=== PATIENT | male | born 1980 | race Two or more races ===

== ENCOUNTER 2020-12-23 06:01 | Inpatient (IN) | payer MEDICAID ==
[~2020-12-23] VITALS: Ht 165.1 cm; Wt 113.4 kg
[2020-12-23] VITALS (17 sets, daily range): BP systolic 122–170; BP diastolic 60–107
--- NOTE | 2020-12-23 06:25 | NUR ---
ED Nurse Note: Recieved pt walk in from home with c/o abdominal pain with nausea and constipation x 1 day, rates pain at 9/10 intermittently, denies chest pain, sob, fevers, or any other complaints, pt immediately gowned and placed on monitoring, will resume care as ordered including starting IV line and retrieving labs ordered.
--- NOTE | 2020-12-23 06:40 | Emergency Room Report ---
History of Present Illness General Chief Complaint: Abdominal Pain Source: Patient Present Illness HPI This patient states that yesterday evening about 3 to 4 hours after he had dinner, he developed nausea, vomiting and right lower quadrant abdominal pain. He states he had a couple episodes of vomiting later in the night and has had worsening of his abdominal pain. He states that the pain is now all over the right side of his abdomen, his epigastrium and mid abdomen. He states that he feels like he needs to have a bowel movement but when he tries to go he cannot. He denies fever or chills. He denies cough or congestion. He denies diarrhea. He states that he did eat the same soup as the rest of his family and none of his family have any symptoms. He denies chest pain. He denies headache or neck pain. He denies blurry vision. He has no other complaints. 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 Patient History Past Medical History: none Past Surgical History: none Social History: Reports: alcohol use - Occasional ETOH; Denies: smoking, drug use Reviewed Nursing Documentation: PMH: Agreed; PSxH: Agreed Nursing Documentation-PMH Past Medical History: No Stated History Review of Systems All Other Systems: negative except mentioned in HPI Physical Exam Vital Signs Date Time Temp Pulse Resp B/P (MAP) Pulse Ox O2 Delivery O2 Flow Rate FiO2 12/23/20 06:10 98.2 74 16 164/103 (123) 96 Room Air Sp02 EP Interpretation: reviewed, normal General Appearance: no apparent distress, alert, GCS 15, non-toxic Head: normocephalic, atraumatic Eyes: bilateral eye normal inspection, bilateral eye PERRL ENT: hearing grossly normal, normal pharynx, no angioedema, normal voice Neck: full range of motion, supple/symm/no masses Respiratory: chest non-tender, lungs clear, normal breath sounds, no respirat ory distress, no retraction, no accessory muscle use, speaking full sentences Cardiovascular #1: regular rate, rhythm, no edema Gastrointestinal: normal bowel sounds, soft, non-distended, no rebound, guarding - voluntary gaurding. +TTP RLQ, epigastrium, art-umbilical regions. Rectal: deferred Musculoskeletal: back normal, normal range of motion, gait/station normal, non- tender Neurologic: alert, motor strength/tone normal, oriented x3, sensory intact, responsive, speech normal Psychiatric: judgement/insight normal, memory normal, mood/affect normal, no suicidal/homicidal ideation Skin: no rash, normal color Medical Decision Making Diagnostic Impression: Primary Impression: Appendicitis ER Course This patient has abdominal pain that is worse in the right lower quadrant and is exquisitely tender on exam. After history and physical on initial evaluation, my differential diagnosis included: Appendicitis, small bowel obstruction, diverticulitis, colitis to name a few. I am mainly concerned about appendicitis and second possible bowel obstruction. Therefore, the patient underwent CT of abdomen and pelvis to assess for appendicitis, small bowel obstruction or other surgical intra-abdominal etiology which showed appendicitis. The patient declined pain medication and nausea medication initially when I had offered it to him, however, later he agreed. He is admitted to the medical surgical floor for surgical appendectomy. This patient was evaluated in the context of the global COVID-19 pandemic, which necessitated consideration that the patient might be at risk for infection with the [id number] virus that causes COVID-19. Institutional protocols and algo rithms that pertain to the evaluation of patients at risk for COVID-19 and the state of rapid change based on information released by multiple regulatory bodies including the CDC and federal and state organizations. These policies and algorithms were followed during the patient's care in the ED. Laboratory Tests Test 12/23/20 06:15 12/23/20 06:40 Urine Color Yellow Urine Appearance Clear Urine pH 8 (4.5-8.0) Urine Specific [place] 1.015 (1.005-1.035) Urine Protein 2+ (NEGATIVE) H Urine Glucose (UA) Negative (NEGATIVE) Urine Ketones Negative (NEGATIVE) Urine Blood Negative (NEGATIVE) Urine Nitrite Negative (NEGATIVE) Urine Bilirubin Negative (NEGATIVE) Urine Urobilinogen Normal MG/DL (0.0-1.0) Urine Leukocyte Esterase Negative (NEGATIVE) Urine RBC 0 /HPF (0 - 0) Urine WBC 0-2 /HPF (0 - 0) Urine Squamous Epithelial Cells Occasional /LPF Urine Bacteria Few /HPF (NONE) Urine Mucus Many /LPF (NONE/OCC) H White Blood Count 17.7 K/UL (4.8-10.8) H Red Blood Count 6.13 M/UL (4.70-6.10) H Hemoglobin 17.9 G/DL (14.2-18.0) Hematocrit 53.2 % (42.0-52.0) H Mean Corpuscular Volume 87 FL (80-99) Mean Corpuscular Hemoglobin 29.2 PG (27.0-31.0) Mean Corpuscular Hemoglobin Concent 33.6 G/DL (32.0-36.0) Red Cell Distribution Width 12.7 % (11.6-14.8) Platelet Count 242 K/UL (150-450) Mean Platelet Volume 9.2 FL (6.5-10.1) Neutrophils (%) (Auto) 85.8 % (45.0-75.0) H Lymphocytes (%) (Auto) 9.7 % (20.0-45.0) L Monocytes (%) (Auto) 3.7 % (1.0-10.0) Eosinophils (%) (Auto) 0.2 % (0.0-3.0) Basophils (%) (Auto) 0.4 % (0.0-2.0) Sodium Level 140 MMOL/L (136-145) Potassium Level 3.3 MMOL/L (3.5-5.1) L Chloride Level 102 MMOL/L (98-107) Carbon Dioxide Level 28 MMOL/L (21-32) Anion Gap 11 mmol/L (5-15) Blood Urea Nitrogen 12 mg/dL (7-18) Creatinine 1.0 MG/DL (0.55-1.30) Estimated Glomerular Filtration Rate > 60 mL/min (>60) Glucose Level 135 MG/DL (74-106) H Calcium Level 9.0 MG/DL (8.5-10.1) Total Bilirubin 0.3 MG/DL (0.2-1.0) Aspartate Amino Transferase (AST) 54 U/L (15-37) H Alanine Aminotransferase (ALT) 119 U/L (12-78) H Alkaline Phosphatase 120 U/L (46-116) H Total Protein 8.0 G/DL (6.4-8.2) Albumin 4.0 G/DL (3.4-5.0) Globulin 4.0 g/dL Albumin/Globulin Ratio 1.0 (1.0-2.7) Lipase 100 U/L (73-393) CT/MRI/US Diagnostic Results CT/MRI/US Diagnostic Results : Imaging Test Ordered: CT abd/pelvis: Impression IMPRESSION: Dilated, fluid-filled appendix with periappendiceal infiltrative changes. Findings are consistent with an acute appendicitis. No free air or abscess. Last Vital Signs Date Time Temp Pulse Resp B/P (MAP) Pulse Ox O2 Delivery O2 Flow Rate FiO2 12/23/20 06:10 98.2 74 16 164/103 (123) 96 Room Air Disposition: ADMITTED INPATIENT Condition: Serious Beth Dewitt DO Dec 23, 2020 06:40
[2020-12-23] MEDS ORDERED: Omnipaque-300 100ml vial INJ PRN (06:45)
[2020-12-23 06:49] LABS: APPEARANCE,URINE CLEAR; BILIRUBIN, URINE NEGATIVE (NEGATIVE); GLUCOSE, URINE (UA) NEGATIVE (NEGATIVE); KETONES,URINE NEGATIVE (NEGATIVE); LEUKOCYTE ESTERASE ,URINE NEGATIVE (NEGATIVE); NITRITE,URINE NEGATIVE (NEGATIVE); PH,URINE 8 (4.5-8.0); PROTEIN,URINE 2+ (NEGATIVE); UROBILINOGEN,URINE NORMAL MG/DL (0.0-1.0)
[2020-12-23 06:58] LABS: COLOR,URINE YELLOW
[2020-12-23 07:04] LABS: HEMATOCRIT 53.2 % (42.0-52.0); HEMOGLOBIN 17.9 G/DL (14.2-18.0); MEAN CORPUSCULAR VOLUME 87 FL (80-99); PLATELET COUNT 242 K/UL (150-450); RED BLOOD COUNT 6.13 M/UL (4.70-6.10); RED CELL DISTRIBUTION WIDTH 12.7 % (11.6-14.8); WHITE BLOOD COUNT 17.7 K/UL (4.8-10.8)
[2020-12-23 07:07] LABS: BASOPHILS % (AUTO) 0.4 % (0.0-2.0); EOSINOPHILS % (AUTO) 0.2 % (0.0-3.0); LYMPHOCYTES % (AUTO) 9.7 % (20.0-45.0); MONOCYTES % (AUTO) 3.7 % (1.0-10.0); NEUTROPHILS % (AUTO) 85.8 % (45.0-75.0)
[2020-12-23 07:13] LABS: ANION GAP 11 mmol/L (5-15); BLOOD UREA NITROGEN 12 mg/dL (7-18); CARBON DIOXIDE 28 MMOL/L (21-32); CHLORIDE 102 MMOL/L (98-107); POTASSIUM 3.3 MMOL/L (3.5-5.1); SODIUM 140 MMOL/L (136-145)
--- NOTE | 2020-12-23 07:23 | NUR ---
HAND-OFF: Report given to Trinh.
[2020-12-23 07:29] LABS: ALANINE AMINOTRANSFERASE 119 U/L (12-78); ALKALINE PHOSPHATASE 120 U/L (46-116); ASPARTATE AMINO TRANSFERASE 54 U/L (15-37); BILIRUBIN,TOTAL 0.3 MG/DL (0.2-1.0)
--- NOTE | 2020-12-23 07:35 | NUR ---
ED Nurse Note: Patient taken to CT in stable condition.
--- NOTE | 2020-12-23 07:49 | NUR ---
ED Nurse Note: Pt came back from CT and stable.
--- NOTE | 2020-12-23 08:03 | Diagnostic Imaging Report ---
EXAM: CT Abdomen and Pelvis With Intravenous Contrast CLINICAL HISTORY: PAIN TECHNIQUE: Axial computed tomography images of the abdomen and pelvis with intravenous contrast. CTDI is 9.5 mGy and DLP is 517.6 mGy-cm. One or more of the following dose reduction techniques were used: automated exposure control, adjustment of the mA and/or kV according to patient size, use of iterative reconstruction technique. COMPARISON: No relevant prior studies available. FINDINGS: Lung bases: Unremarkable. No mass. No consolidation. ABDOMEN: Liver: Hepatic steatosis. No focal hepatic lesion. Gallbladder and bile ducts: Unremarkable. No calcified stones. No ductal dilation. Pancreas: Unremarkable. No mass. No ductal dilation. Spleen: Unremarkable. No splenomegaly. Adrenals: Unremarkable. No mass. Kidneys and ureters: Unremarkable. No solid mass. No hydronephrosis. Stomach and bowel: No bowel obstruction. Mild reactive wall thickening of the cecum. Otherwise no evidence of bowel wall thickening. PELVIS: Appendix: Dilated, fluid-filled appendix measuring up to 17 mm in maximal diameter, with periappendiceal fat stranding and mild free fluid. Findings are consistent with acute appendicitis. No loculated periappendiceal fluid collection. Bladder: Unremarkable. No mass. Reproductive: Unremarkable as visualized. ABDOMEN and PELVIS: Intraperitoneal space: No free intra-abdominal air. Bones/joints: No acute fracture. No dislocation. Soft tissues: Unremarkable. Vasculature: Unremarkable. No abdominal aortic aneurysm. Lymph nodes: Unremarkable. No enlarged lymph nodes. IMPRESSION: Dilated, fluid-filled appendix with periappendiceal infiltrative changes. Findings are consistent with an acute appendicitis. No free air or abscess. <MYCVCSECTION> Communications: 12/23/20 08:22 Call Doctor Regarding Appendicitis, called Dr. Post on 12/23 08:23 (-08:00)
[2020-12-23] MEDS ORDERED: cefOXitin Sod 1 GM in D5W 55 ML IVPB ONE (08:30)
[2020-12-23] MEDS ORDERED: Morphine Sulfate 4mg/ml Inj (IV USE ONLY) IVP ONE (09:30)
--- NOTE | 2020-12-23 09:34 | NUR ---
REPORT GIVEN TO RN AT MED SURG ROOM [id number] AWAKE ALERT ORIENTED
[2020-12-23] MEDS ORDERED: EPINEPHrine 1mg/1ml Amp ONE (09:51)
[2020-12-23] MEDS ORDERED: Bupivacaine 0.25% Inj 30ml INJ ONE (09:58)
--- NOTE | 2020-12-23 10:33 | Consultation ---
History of Present Illness General Date patient seen: Dec 23, 2020 Reason for Hospitalization: Abdominal Pain Present Illness HPI 40-year-old otherwise healthy male presented to [facility] complaining of right lower quadrant abdominal pain for 1 day. States umbilical right lower quadrant pain began later in the evening followed by nausea and emesis nonbloody bilious emesis. Normal flatus normal bowel movement pain described as cramping 6 out of 10 pain came in for evaluation identified to have leukocytosis CT scan consistent with appendicitis surgery called to evaluate and assist with care patient seen in emergency department. Allergies: Coded Allergies: No Known Allergies (Unverified , 12/23/20) COVID-19 Screening Contact w/high risk pt: No Experienced COVID-19 symptoms?: No Patient History History Provided By: Patient, Medical Record, PMD Healthcare decision maker Resuscitation status Advanced Directive on File Past Medical/Surgical History Past Medical/Surgical History: (1) Appendicitis Review of Systems Review of Symptoms General ROS: no weight loss or fever Psychological ROS: no depression or mood changes, no memory loss Ophthalmic ROS: no visual changes or eye irritation ENT ROS: no nasal congestion, hearing loss, dizziness Allergy and Immunology ROS: no allergic symptoms or urticaria Hematological and Lymphatic ROS: no swollen glands, unusual bleeding or bruising Endocrine ROS: no polyuria, polydipsia, weight changes, temperature intolerance Respiratory ROS: no cough, shortness of breath, or wheezing Cardiovascular ROS: no chest pain or dyspnea on exertion Gastrointestinal ROS: + abdominal pain, bright red blood in stool. Musculoskeletal ROS: no myalgias or arthralgias Neurological ROS: no TIA or stroke symptoms Dermatological ROS: no new or changing skin lesions, rashes or pruritis Physical Exam Physical Exam General appearance: alert, cooperative, no distress, appears stated age Head: Normocephalic, without obvious abnormality, atraumatic Eyes: conjunctivae/corneas clear. PERRL, EOM's intact. Fundi benign Throat: Lips, mucosa, and tongue normal. Teeth and gums normal Neck: supple, symmetrical, trachea midline, no adenopathy, thyroid: not enlarged, symmetric, no tenderness/mass/nodules, no carotid bruit and no JVD Lungs: clear to auscultation bilaterally Heart: regular rate and rhythm, S1, S2 normal, no murmur, click, rub or gallop Abdomen: soft, RLQ-tender. Bowel sounds normal. No masses, no organomegaly Extremities: extremities normal, atraumatic, no cyanosis or edema Pulses: 2+ and symmetric Skin: Skin color, texture, turgor normal. No rashes or lesions Neurologic: Grossly normal Last 24 Hour Vital Signs Date Time Temp Pulse Resp B/P (MAP) Pulse Ox O2 Delivery O2 Flow Rate FiO2 12/23/20 09:31 98.0 82 16 130/80 98 Room Air 12/23/20 07:00 98.2 65 16 145/85 97 Room Air 12/23/20 06:20 74 16 Room Air 12/23/20 06:10 98.2 74 16 164/103 (123) 96 Room Air Intake and Output 12/22/20 12/23/20 19:00 07:00 # Voids 1 Laboratory Tests Test 12/23/20 06:15 12/23/20 06:40 Urine Color Yellow Urine Appearance Clear Urine pH 8 (4.5-8.0) Urine Specific [place] 1.015 (1.005-1.035) Urine Protein 2+ (NEGATIVE) H Urine Glucose (UA) Negative (NEGATIVE) Urine Ketones Negative (NEGATIVE) Urine Blood Negative (NEGATIVE) Urine Nitrite Negative (NEGATIVE) Urine Bilirubin Negative (NEGATIVE) Urine Urobilinogen Normal MG/DL (0.0-1.0) Urine Leukocyte Esterase Negative (NEGATIVE) Urine RBC 0 /HPF (0 - 0) Urine WBC 0-2 /HPF (0 - 0) Urine Squamous Epithelial Cells Occasional /LPF Urine Bacteria Few /HPF (NONE) Urine Mucus Many /LPF (NONE/OCC) H White Blood Count 17.7 K/UL (4.8-10.8) H Red Blood Count 6.13 M/UL (4.70-6.10) H Hemoglobin 17.9 G/DL (14.2-18.0) Hematocrit 53.2 % (42.0-52.0) H Mean Corpuscular Volume 87 FL (80-99) Mean Corpuscular Hemoglobin 29.2 PG (27.0-31.0) Mean Corpuscular Hemoglobin Concent 33.6 G/DL (32.0-36.0) Red Cell Distribution Width 12.7 % (11.6-14.8) Platelet Count 242 K/UL (150-450) Mean Platelet Volume 9.2 FL (6.5-10.1) Neutrophils (%) (Auto) 85.8 % (45.0-75.0) H Lymphocytes (%) (Auto) 9.7 % (20.0-45.0) L Monocytes (%) (Auto) 3.7 % (1.0-10.0) Eosinophils (%) (Auto) 0.2 % (0.0-3.0) Basophils (%) (Auto) 0.4 % (0.0-2.0) Sodium Level 140 MMOL/L (136-145) Potassium Level 3.3 MMOL/L (3.5-5.1) L Chloride Level 102 MMOL/L (98-107) Carbon Dioxide Level 28 MMOL/L (21-32) Anion Gap 11 mmol/L (5-15) Blood Urea Nitrogen 12 mg/dL (7-18) Creatinine 1.0 MG/DL (0.55-1.30) Estimat Glomerular Filtration Rate > 60 mL/min (>60) Glucose Level 135 MG/DL (74-106) H Calcium Level 9.0 MG/DL (8.5-10.1) Total Bilirubin 0.3 MG/DL (0.2-1.0) Aspartate Amino Transf (AST/SGOT) 54 U/L (15-37) H Alanine Aminotransferase (ALT/SGPT) 119 U/L (12-78) H Alkaline Phosphatase 120 U/L (46-116) H Total Protein 8.0 G/DL (6.4-8.2) Albumin 4.0 G/DL (3.4-5.0) Globulin 4.0 g/dL Albumin/Globulin Ratio 1.0 (1.0-2.7) Lipase 100 U/L (73-393) Height (Feet): 5 Height (Inches): 5.00 Weight (Pounds): 250 Medications Current Medications Medications (Trade) Dose Ordered Sig/Sully Route PRN Reason Start Time Stop Time Status Last Admin Dose Admin Iohexol (OMNIPAQUE-300 100ml) 100 ml NOW PRN INJ Radiology Procedure 12/23/20 06:45 12/25/20 06:44 Sodium Chloride 1,000 ml @ 999 mls/hr Q1H1M ONCE IV 12/23/20 09:30 12/23/20 10:30 1/25/21 10:09 Assessment/Plan Problem List: (1) Appendicitis Assessment & Plan: 40M acute appendicitis uncomplicated afebrile, HD stable no covid symptoms leukocytosis CT consistent with acute uncomplicated appendicitis. npo iv fluids iv abx to or for lap vs open appy consent thank you ABDOMEN: Liver: Hepatic steatosis. No focal hepatic lesion. Gallbladder and bile ducts: Unremarkable. No calcified stones. No ductal dilation. Pancreas: Unremarkable. No mass. No ductal dilation. Spleen: Unremarkable. No splenomegaly. Adrenals: Unremarkable. No mass. Kidneys and ureters: Unremarkable. No solid mass. No hydronephrosis. Stomach and bowel: No bowel obstruction. Mild reactive wall thickening of the cecum. Otherwise no evidence of bowel wall thickening. PELVIS: Appendix: Dilated, fluid-filled appendix measuring up to 17 mm in maximal diameter, with periappendiceal fat stranding and mild free fluid. Findings are consistent with acute appendicitis. No loculated periappendiceal fluid collection. Bladder: Unremarkable. No mass. Reproductive: Unremarkable as visualized. ABDOMEN and PELVIS: Intraperitoneal space: No free intra-abdominal air. Bones/joints: No acute fracture. No dislocation. Soft tissues: Unremarkable. Vasculature: Unremarkable. No abdominal aortic aneurysm. Lymph nodes: Unremarkable. No enlarged lymph nodes. IMPRESSION: Dilated, fluid-filled appendix with periappendiceal infiltrative changes. Findings are consistent with an acute appendicitis. No free air or abscess. ICD Codes: K37 - Unspecified appendicitis SNOMED: [id number] Dom Clark Dec 23, 2020 10:33
--- NOTE | 2020-12-23 10:34 | Pre-Procedure Note/Attestation ---
Pre-Procedure Note/Attestation Complete Prior to Procedure Procedure Narrative: laparoscopic appendectomy Indications for Procedure Pre-Operative Diagnosis: acute appendicitis Attestation I attest that I discussed the nature of the procedure; its benefits; risks and complications; and alternatives (and the risks and benefits of such alternatives), prior to the procedure, with the patient (or the patient's legal credit resolution representative). I attest that, if there was a reasonable possibility of needing a blood transfusion, the patient (or the patient's legal credit resolution representative) was given the [facility] standardized written summary, pursuant to the [place]idi Alligator Blood Safety Act ([place] Health and Safety Code # 1645, as amended). I attest that I re-evaluated the patient just prior to the surgery and that there has been no change in the patient's H&P, except as documented below: Dom Clark Dec 23, 2020 10:33
--- NOTE | 2020-12-23 10:45 | Cardiac Electrophysiology PN ---
Subjective Subjective Seen and examined. No CP or SOB. No prior MA or CAD or CHF. On no meds.No DM or HTN Will get stat ECG. Stable to proceed with appendectomy. DW Dr Clark and RN Objective Last 24 Hour Vital Signs Date Time Temp Pulse Resp B/P (MAP) Pulse Ox O2 Delivery O2 Flow Rate FiO2 12/23/20 09:31 98.0 82 16 130/80 98 Room Air 12/23/20 07:00 98.2 65 16 145/85 97 Room Air 12/23/20 06:20 74 16 Room Air 12/23/20 06:10 98.2 74 16 164/103 (123) 96 Room Air Intake and Output 12/22/20 12/23/20 19:00 07:00 # Voids 1 Laboratory Tests Test 12/23/20 06:15 12/23/20 06:40 Urine Color Yellow Urine Appearance Clear Urine pH 8 (4.5-8.0) Urine Specific [place] 1.015 (1.005-1.035) Urine Protein 2+ (NEGATIVE) H Urine Glucose (UA) Negative (NEGATIVE) Urine Ketones Negative (NEGATIVE) Urine Blood Negative (NEGATIVE) Urine Nitrite Negative (NEGATIVE) Urine Bilirubin Negative (NEGATIVE) Urine Urobilinogen Normal MG/DL (0.0-1.0) Urine Leukocyte Esterase Negative (NEGATIVE) Urine RBC 0 /HPF (0 - 0) Urine WBC 0-2 /HPF (0 - 0) Urine Squamous Epithelial Cells Occasional /LPF Urine Bacteria Few /HPF (NONE) Urine Mucus Many /LPF (NONE/OCC) H White Blood Count 17.7 K/UL (4.8-10.8) H Red Blood Count 6.13 M/UL (4.70-6.10) H Hemoglobin 17.9 G/DL (14.2-18.0) Hematocrit 53.2 % (42.0-52.0) H Mean Corpuscular Volume 87 FL (80-99) Mean Corpuscular Hemoglobin 29.2 PG (27.0-31.0) Mean Corpuscular Hemoglobin Concent 33.6 G/DL (32.0-36.0) Red Cell Distribution Width 12.7 % (11.6-14.8) Platelet Count 242 K/UL (150-450) Mean Platelet Volume 9.2 FL (6.5-10.1) Neutrophils (%) (Auto) 85.8 % (45.0-75.0) H Lymphocytes (%) (Auto) 9.7 % (20.0-45.0) L Monocytes (%) (Auto) 3.7 % (1.0-10.0) Eosinophils (%) (Auto) 0.2 % (0.0-3.0) Basophils (%) (Auto) 0.4 % (0.0-2.0) Sodium Level 140 MMOL/L (136-145) Potassium Level 3.3 MMOL/L (3.5-5.1) L Chloride Level 102 MMOL/L (98-107) Carbon Dioxide Level 28 MMOL/L (21-32) Anion Gap 11 mmol/L (5-15) Blood Urea Nitrogen 12 mg/dL (7-18) Creatinine 1.0 MG/DL (0.55-1.30) Estimat Glomerular Filtration Rate > 60 mL/min (>60) Glucose Level 135 MG/DL (74-106) H Calcium Level 9.0 MG/DL (8.5-10.1) Total Bilirubin 0.3 MG/DL (0.2-1.0) Aspartate Amino Transf (AST/SGOT) 54 U/L (15-37) H Alanine Aminotransferase (ALT/SGPT) 119 U/L (12-78) H Alkaline Phosphatase 120 U/L (46-116) H Total Protein 8.0 G/DL (6.4-8.2) Albumin 4.0 G/DL (3.4-5.0) Globulin 4.0 g/dL Albumin/Globulin Ratio 1.0 (1.0-2.7) Lipase 100 U/L (73-393) Guillermo Scott MD Dec 23, 2020 10:45
--- NOTE | 2020-12-23 10:48 | NUR ---
NURSE NOTES: Patient arrived on unit. Stable. Breathing is even and unlabored. Denies pain or SOB. Patient instructed to use call light for assistance, verbalized understanding. Patient is in bed in locked and lowest position with call light within reach. All safety measures provided. Will continue plan of care.
--- NOTE | 2020-12-23 11:27 | Anethesia Preoperative Eval ---
Anesthesia Pre-op PMH/ROS General Date of Evaluation: Dec 23, 2020 Time of Evaluation: 11:26 Anesthesiologist: Selene ASA Score: ASA 3 - Emergency Mallampati Score Class I : Soft palate, uvula, fauces, pillars visible Class II: Soft palate, uvula, fauces visible Class III: Soft palate, base of uvula visible Class IV: Only hard plate visible Mallampati Classification: Class III Surgeon: Eduardo Diagnosis: Appendicitis Surgical Procedure: Laparoscopic Appendectomy Anesthesia History: none Family History: no anesthesia problems Allergies: Coded Allergies: No Known Allergies (Unverified , 12/23/20) Medications: see eMAR Patient NPO?: Yes Past Medical History Cardiovascular: Reports: HTN Hematology/Immune: Reports: other - Covid + Other: obesity - BMI 43 Anesthesia Pre-op Phys. Exam Physician Exam Last Vital Signs Date Time Temp Pulse Resp B/P (MAP) Pulse Ox O2 Delivery O2 Flow Rate FiO2 12/23/20 10:59 98.3 82 18 170/107 (128) 99 12/23/20 09:31 Room Air Constitutional: NAD Neurologic: CN 2-12 intact Cardiovascular: RRR Respiratory: CTA Gastrointestinal: S/NT/ND Airway Exam Mallampati Score: Class III MO: limited ROM: limited Teeth: missing, intact Anesthesia Pre-op A/P Labs Hematology Test 12/23/20 06:40 White Blood Count 17.7 K/UL (4.8-10.8) H Red Blood Count 6.13 M/UL (4.70-6.10) H Hemoglobin 17.9 G/DL (14.2-18.0) Hematocrit 53.2 % (42.0-52.0) H Mean Corpuscular Volume 87 FL (80-99) Mean Corpuscular Hemoglobin 29.2 PG (27.0-31.0) Mean Corpuscular Hemoglobin Concent 33.6 G/DL (32.0-36.0) Red Cell Distribution Width 12.7 % (11.6-14.8) Platelet Count 242 K/UL (150-450) Mean Platelet Volume 9.2 FL (6.5-10.1) Neutrophils (%) (Auto) 85.8 % (45.0-75.0) H Lymphocytes (%) (Auto) 9.7 % (20.0-45.0) L Monocytes (%) (Auto) 3.7 % (1.0-10.0) Eosinophils (%) (Auto) 0.2 % (0.0-3.0) Basophils (%) (Auto) 0.4 % (0.0-2.0) Chemistry Test 12/23/20 06:40 Sodium Level 140 MMOL/L (136-145) Potassium Level 3.3 MMOL/L (3.5-5.1) L Chloride Level 102 MMOL/L (98-107) Carbon Dioxide Level 28 MMOL/L (21-32) Anion Gap 11 mmol/L (5-15) Blood Urea Nitrogen 12 mg/dL (7-18) Creatinine 1.0 MG/DL (0.55-1.30) Estimat Glomerular Filtration Rate > 60 mL/min (>60) Glucose Level 135 MG/DL (74-106) H Calcium Level 9.0 MG/DL (8.5-10.1) Total Bilirubin 0.3 MG/DL (0.2-1.0) Aspartate Amino Transf (AST/SGOT) 54 U/L (15-37) H Alanine Aminotransferase (ALT/SGPT) 119 U/L (12-78) H Alkaline Phosphatase 120 U/L (46-116) H Total Protein 8.0 G/DL (6.4-8.2) Albumin 4.0 G/DL (3.4-5.0) Globulin 4.0 g/dL Albumin/Globulin Ratio 1.0 (1.0-2.7) Lipase 100 U/L (73-393) Risk Assessment & Plan Assessment: ASA 3E Plan: GA, GlideScope Status Change Before Surgery: No Pre-Antibiotics Dru Grams Ancef IV Given Within 1 Hr of Incision: Yes Time Given: 13:01 William Morton MD Dec 23, 2020 11:27
[2020-12-23] MEDS ORDERED: Atropine Sulfate 0.4mg/ml inj IVP PRN (11:30)
[2020-12-23] MEDS ORDERED: LORazepam Inj 2mg/ml 1ml IV PRN (11:30)
[2020-12-23] MEDS ORDERED: Hydromorphone 0.5mg/0.5ml inj IVP PRN (11:30)
[2020-12-23] MEDS ORDERED: NS Irrig 1000ml ONE (11:30)
[2020-12-23] MEDS ORDERED: Metoclopramide 10mg/2ml Inj IVP PRN (11:30)
[2020-12-23] MEDS ORDERED: LR 1000ml ONE (11:30)
[2020-12-23] MEDS ORDERED: Midazolam 2mg/2ml Inj IVP PRN (11:30)
[2020-12-23] MEDS ORDERED: Meperidine 25mg/1ml Inj (FOR RIGORS ONLY) IV PRN (11:30)
[2020-12-23] MEDS ORDERED: oxyCODONE HCL/Acetaminophen 5/325mg ORAL PRN (11:30)
[2020-12-23] MEDS ORDERED: Acetaminophen (Non formulary) 100 ML IV ONE (11:30)
[2020-12-23] MEDS ORDERED: LR 1000ml 1,000 ML IVLG SCH (11:30)
[2020-12-23] MEDS ORDERED: Sterile Water Irrig 1000ml IRRIG ONE (11:30)
[2020-12-23] MEDS ORDERED: HYDROcodone/Acetamin 7.5/325 tab ORAL PRN (11:30)
[2020-12-23] MEDS ORDERED: DiphenhydrAMINE 50mg/ml Inj IVP PRN (11:30)
[2020-12-23] MEDS ORDERED: Ketorolac 30mg Inj IV PRN ×2 (11:30)
[2020-12-23] MEDS ORDERED: HYDROcodone/Acetamin 5/325 tab ORAL PRN ×2 (11:30→12:45)
[2020-12-23] MEDS ORDERED: fentaNYL 100 mcg/2 mL IV PRN (11:30)
--- NOTE | 2020-12-23 11:34 | Immediate Post-Op Evaluation ---
Immediate Post-Op Evalulation Immediate Post-Op Evalulation Procedure: Laparoscopic Appendectomy Date of Evaluation: Dec 23, 2020 Time of Evaluation: 13:20 IV Fluids: 1000 LR Blood Products: 0 Estimated Blood Loss: 50 Urinary Output: 0 Blood Pressure Systolic: 155 Blood Pressure Diastolic: 104 Pulse Rate: 116 Respiratory Rate: 20 O2 Sat by Pulse Oximetry: 90 Temperature (Fahrenheit): 98 Pain Score (1-10): 2 Nausea: No Vomiting: No Complications 0 Patient Status: awake, reacts, patent, extubated, none Hydration Status: adequate Dru Grams Ancef IV Given Within 1 Hr of Incision: Yes Time Given: 13:01 William Morton MD Dec 23, 2020 11:34
--- NOTE | 2020-12-23 11:34 | NUR ---
NURSE NOTES: Patient taken to surgery.
--- NOTE | 2020-12-23 11:34 | 48 Hour Post Anesthesia Eval ---
Post Anesthesia Evaluation Procedure: Laparoscopic Appendectomy Date of Evaluation: Dec 23, 2020 Time of Evaluation: 15:34 Blood Pressure Systolic: 156 0: 103 Pulse Rate: 114 Respiratory Rate: 20 Temperature (Fahrenheit): 98 O2 Sat by Pulse Oximetry: 94 Airway: patent Nausea: No Vomiting: No Pain Intensity: 2 Hydration Status: adequate Cardiopulmonary Status: Stable Mental Status/LOC: patient returned to baseline Follow-up Care/Observations: 0 Post-Anesthesia Complications: 0 Follow-up care needed: N/A William Morton MD Dec 23, 2020 11:34
[2020-12-23] MEDS ORDERED: Lidocaine 1% MPF 10mg/ml 5ml ONE (11:35)
[2020-12-23] MEDS ORDERED: Sodium Chloride 10ml vial INJ ONE (11:35)
[2020-12-23] MEDS ORDERED: fentaNYL 100 mcg/2 mL IV ONE (11:36)
[2020-12-23] MEDS ORDERED: Lidocaine 1% 10mg/ml/EPI 0.01mg/ml 30ml INJ ONE (11:36)
[2020-12-23] MEDS ORDERED: NS Irrig 1000ml IRRIG ONE (12:09)
--- NOTE | 2020-12-23 12:44 | Brief Operative Note ---
Immediate Post Operative Note Operative Note Pre-op Diagnosis: acute appendicitis Procedure: lap appy Post-op Diagnosis: same as pre-op Surgeon: portia Anesthesiologist: dana Anesthesia: general, local Specimen: yes Complications: none Condition: stable Fluids: see Estimated Blood Loss: minimal Implant(s) used?: No Dom Clark Dec 23, 2020 12:44
[2020-12-23] MEDS ORDERED: Milk of Magnesia 30ml Ud ORAL PRN (12:45)
[2020-12-23] MEDS ORDERED: HYDROcodone/Acetamin 10/325 tab ORAL PRN (12:45)
[2020-12-23] MEDS ORDERED: Morphine Sulfate 4mg/ml Inj (IV USE ONLY) IVP PRN (12:45)
[2020-12-23] MEDS ORDERED: Morphine Sulfate 2mg/ml Inj(IV/IM USE ONLY) IVP PRN (12:45)
[2020-12-23] MEDS ORDERED: Glycopyrrolate 0.2mg/ml 1ml Vial ONE ×2 (12:46→12:49)
--- NOTE | 2020-12-23 14:30 | NUR ---
NURSE NOTES: Patient arrived on unit. Stable. Breathing is even on 3L oxygen via nc. Patient instructed to use call light for assistance, verbalized understanding. Patient denies pain or SOB at this time. Surgical dressing c/d/i. Patient is in bed in locked and lowest position with call light within reach. All safety measures provided. Will continue plan of care.
--- NOTE | 2020-12-23 14:46 | Consultation ---
Consult Note Consult Note DATE OF CONSULTATION: 12/23/2020 CONSULTING PHYSICIAN: Hossein Scott MD. ATTENDING PHYSICIAN: Dr. Benjamin REASON FOR CONSULTATION: Apnea post laparoscopic appendectomy, recent history of COVID-19 HISTORY OF PRESENT ILLNESS: This is a 40-year-old male who presented to the ED for evaluation of nausea, vomiting, and right lower quadrant abdominal pain. His CT of abdomen and pelvis with contrast revealed dilated, fluid-filled appendix with periappendiceal infiltrative changes. He underwent laparoscopic scopic appendectomy today. During post anesthetic evaluation, patient was found to be in apnea. Currently, patient is on 3 L nasal cannula saturating at 97%. Earlier, the patient was reported to be using CPAP at night at home for sleep apnea. However, upon patient interview patient admits to snoring and waking up at night with shortness of breath, patient denies using CPAP or any other oxygen at home. This may have been contributed by residual anesthesia in his system. Patient also reported recent history of COVID-19. He was diagnosed on 11/05/2020 at an urgent care. He had a repeat testing at a later date, which is does not recall, and tested negative. Today he denies shortness of breath, cough, fever, and diarrhea. PAST MEDICAL HISTORY: None MEDICATIONS: Full list of home medication not available at this time ALLERGIES: No known allergies FAMILY HISTORY: Unknown PERSONAL/SOCIAL HISTORY: Lives at home with family REVIEW OF SYSTEMS: Negative except mentioned in HPI PHYSICAL EXAMINATION: VITAL SIGNS: Blood pressure 170/107, heart rate 114, respiratory rate 20, weight 113 kg, height 165 cm General: Patient sitting up in bed with normal work of breathing on 3 L nasal cannula HEENT: Head exam reveals that the head is normocephalic, atraumatic without deformity or unusual swelling. Pupils are PERRLA. CHEST AND LUNGS: Reveals clear, normal, symmetrical breath sounds with no adventitious sounds. CARDIOVASCULAR: Reveals normal S1, S2 without murmurs, rubs, or clicks. ABDOMEN: Obese, soft with no tenderness or organomegaly. RECTAL: Deferred. MUSCULOSKELETAL: There is no tenderness to palpation. Range of motion is normal. NEUROLOGICAL: Alert and oriented x3 , nonfocal LABORATORY DATA: Laboratory testing shows WBC 17.7, hemoglobin 17.9, hematocrit 53.2. Chemistries show sodium 140, potassium 3.3, glucose 135, AST 54, ALT 119 Urinalysis shows 2+ protein Assessment/Plan 1. Recent history of COVID-19 -Patient tested positive for COVID-19 on 11/05/2020 -His repeat test had a later date was negative according to patient -He is respiration is stable on 3 L nasal cannula -We will wean down before his discharge - Recommend COVID-X status per guideline 2. Possible sleep apnea - He may have undiagnosed sleep apnea - Recommend outpatient polysomnography for evaluation of sleep apnea 3. Elevated LFTs - s/p laparoscopic appendectomy The care for this patient was discussed with my supervising physician. Time spent for this case was approximately 31 minutes. Howard Martinez Dec 23, 2020 14:46
[2020-12-23] MEDS: Docusate 100mg cap ORAL SCH (18:07)
--- NOTE | 2020-12-23 19:15 | NUR ---
NURSE NOTES: Received report from SRAAI Reed. Pt is in bed, in no pain or distress. Bed in lowest position, call light within reach. Pt is aware to call nurse when in need of assistance. Will continue to monitor.
--- NOTE | 2020-12-23 19:26 | NUR ---
NURSE HAND-OFF: report given to Sixto MOON.
[2020-12-23] MEDS: Piperacillin/Tazobactam 3.375 GM in NS 110 ML IVPB SCH (21:13)
[2020-12-24] VITALS: BP 128/79
[2020-12-24 04:00] VITALS: BP 138/82
[2020-12-24] MEDS: Piperacillin/Tazobactam 3.375 GM in NS 110 ML IVPB SCH (05:11)
[2020-12-24 05:37] LABS: HEMATOCRIT 47.8 % (42.0-52.0); HEMOGLOBIN 16.1 G/DL (14.2-18.0); MEAN CORPUSCULAR VOLUME 87 FL (80-99); PLATELET COUNT 217 K/UL (150-450); RED BLOOD COUNT 5.48 M/UL (4.70-6.10); RED CELL DISTRIBUTION WIDTH 12.9 % (11.6-14.8); WHITE BLOOD COUNT 18.4 K/UL (4.8-10.8)
[2020-12-24 05:45] LABS: ANION GAP 9 mmol/L (5-15); BLOOD UREA NITROGEN 15 mg/dL (7-18); CALCIUM 8.9 MG/DL (8.5-10.1); CARBON DIOXIDE 29 MMOL/L (21-32); CHLORIDE 104 MMOL/L (98-107); POTASSIUM 3.6 MMOL/L (3.5-5.1); SODIUM 142 MMOL/L (136-145)
--- NOTE | 2020-12-24 07:22 | NUR ---
NURSE HAND-OFF: Important Events on Shift: No pain Patient Status: calm, eating breakfast Diet: regular Pending Orders: Pending Results/Labs: Pending MD notification: Latest Vital Signs: Temperature 98.3 , Pulse 79 , B/P 138 /82 , Respiratory Rate 18 , O2 SAT 95 , Nasal Cannula, O2 Flow Rate 3 . Vital Sign Comment: VSS Latest Vázquez Fall Score: 35 Fall Risk: Medium Risk Safety Measures: Call light Within Reach, Bed Alarm , Side Rails Side Rails x2, Bed position Low and Locked. Fall Precautions: Yellow Socks Patient Fall Education Report given to SARAI Reid.
--- NOTE | 2020-12-24 07:26 | NUR ---
CASE MANAGEMENT:REVIEW 40 YR OLD MALE WALKED INTO ER CC: ABD PAIN WITH N/V SINCE WEDNESDAY SI: APPENDICITIS 98.3 74 16 164/103 96% ON RA WBC+17.7 IS: IV CEFOXITIN X1 IV MORPHINE X1 IV ZOFRAN X1 1L NS BOLUS CT ABD/PELVIS : TO MED/SURG 3 EAST PLAN: TO SURGERY FOR LAP APPY
--- NOTE | 2020-12-24 07:45 | NUR ---
NURSE NOTES: Received report from SARAI Henson. Pt awake in bed, alert and oriented. Breathing is even and unlabored on RA.Patient denies pain or discomfort at this time. Surgical dressing c/d/i. Patient is in bed in locked and lowest position with call light within reach. Will continue plan of care.
[2020-12-24 08:09] VITALS: BP 148/76
[2020-12-24 09:28] VITALS: BP 148/76
[2020-12-24] MEDS: Docusate 100mg cap ORAL SCH (09:28)
--- NOTE | 2020-12-24 09:59 | NUR ---
NURSE NOTES: Pt in stable condition. Provided discharge instruction, Rx and follow-up date. Pt verbalized understanding. All belongings were accounted for. IV and ID removed. Pt was escorted by nurse to downstair and picked up by family.
--- NOTE | 2020-12-24 11:19 | Cardiac Electrophysiology PN ---
Assessment/Plan Assessment/Plan 1. HTN better on Lopressor. 2. S/P Appendectomy. Tolerated surgery well. FARHAN Clark DC home today Subjective Subjective Tolerated surgery well. In NAD. DC planning home today Objective Last 24 Hour Vital Signs Date Time Temp Pulse Resp B/P (MAP) Pulse Ox O2 Delivery O2 Flow Rate FiO2 12/24/20 09:28 86 148/76 12/24/20 09:00 Room Air 12/24/20 08:09 97.1 86 21 148/76 (100) 95 86 12/24/20 04:00 98.3 79 18 138/82 (100) 95 12/24/20 00:00 98.8 110 20 128/79 (95) 95 12/23/20 21:13 107 122/77 12/23/20 21:00 Room Air 12/23/20 20:00 99.2 107 20 122/77 (92) 96 12/23/20 16:00 98.1 104 20 139/90 (106) 100 12/23/20 15:00 98.0 111 20 138/93 (108) 100 12/23/20 14:30 98.0 101 20 141/90 (107) 98 12/23/20 14:10 97.8 95 22 142/88 99 Nasal Cannula 3 12/23/20 14:00 99 23 145/78 99 Simple Mask 6 12/23/20 13:50 95 27 143/78 98 Simple Mask 6 12/23/20 13:40 97 30 138/64 97 Simple Mask 6 12/23/20 13:30 99 32 152/66 94 Simple Mask 6 12/23/20 13:20 96 27 148/60 93 Simple Mask 6 12/23/20 13:13 114 20 94 12/23/20 13:12 116 20 90 12/23/20 13:10 103 29 146/83 93 Simple Mask 6 12/23/20 13:05 109 30 132/74 91 Simple Mask 6 12/23/20 13:00 114 26 132/74 91 Simple Mask 6 12/23/20 12:56 98.0 113 28 155/74 90 Simple Mask 6 12/23/20 11:20 Room Air Intake and Output 0 12/23/20 12/24/20 19:00 07:00 Intake Total 755 ml 1400 ml Output Total 20 ml Balance 735 ml 1400 ml Intake Oral 1400 ml IV Total 755 ml Output Estimated Blood Loss 20 ml # Voids 2 Laboratory Tests Test 12/24/20 05:15 White Blood Count 18.4 K/UL (4.8-10.8) H Red Blood Count 5.48 M/UL (4.70-6.10) Hemoglobin 16.1 G/DL (14.2-18.0) Hematocrit 47.8 % (42.0-52.0) Mean Corpuscular Volume 87 FL (80-99) Mean Corpuscular Hemoglobin 29.3 PG (27.0-31.0) Mean Corpuscular Hemoglobin Concent 33.6 G/DL (32.0-36.0) Red Cell Distribution Width 12.9 % (11.6-14.8) Platelet Count 217 K/UL (150-450) Mean Platelet Volume 8.7 FL (6.5-10.1) Neutrophils (%) (Auto) % (45.0-75.0) Lymphocytes (%) (Auto) % (20.0-45.0) Monocytes (%) (Auto) % (1.0-10.0) Eosinophils (%) (Auto) % (0.0-3.0) Basophils (%) (Auto) % (0.0-2.0) Differential Total Cells Counted 100 Neutrophils % (Manual) 76 % (45-75) H Lymphocytes % (Manual) 17 % (20-45) L Monocytes % (Manual) 6 % (1-10) Eosinophils % (Manual) 0 % (0-3) Basophils % (Manual) 0 % (0-2) Band Neutrophils 1 % (0-8) Platelet Estimate Adequate Platelet Morphology Normal Red Blood Cell Morphology Normal Sodium Level 142 MMOL/L (136-145) Potassium Level 3.6 MMOL/L (3.5-5.1) Chloride Level 104 MMOL/L (98-107) Carbon Dioxide Level 29 MMOL/L (21-32) Anion Gap 9 mmol/L (5-15) Blood Urea Nitrogen 15 mg/dL (7-18) Creatinine 1.0 MG/DL (0.55-1.30) Estimat Glomerular Filtration Rate > 60 mL/min (>60) Glucose Level 129 MG/DL (74-106) H Calcium Level 8.9 MG/DL (8.5-10.1) Objective HEENT: No JVE LUNGS: Clear CVS: RRR ABDOMEN Soft post op EXT No edema Guillermo Scott MD Dec 24, 2020 11:19
--- NOTE | 2020-12-28 14:40 | Discharge Summary ---
Discharge Summary Discharge Summary _ Date of admission: 12/23/2020 Date of discharge: 12/24/[address] Benjamin History of Present Illness and Brief Hospital Course Mr. Jamar Guadalupe is a 40-year-old male who presented to the ED for evaluation of nausea, vomiting, and right lower quadrant abdominal pain. His CT abdomen and pelvis with contrast revealed dilated, fluid-filled appendix with periappendiceal infiltrative changes. Patient reported recent history of COVID-19. Patient reported testing positive for COVID-19 on 11/05/2020 at an urgent care. Patient also reported testing negative on a repeat test at a later date. Patient denied any respiratory related symptoms during this visit. He did report history consistent with sleep apnea. He was instructed to follow-up with PCP for an outpatient polysomnography for evaluation of sleep apnea. Patient initially presented with elevated blood pressure and was evaluated by a mammalogy teacher for cardiac clearance prior to appendectomy. Patient was taken to the OR for laparoscopic appendectomy and patient tolerated the procedure well. Patient was observed for a period of time and was medically stable for discharge. Patient was discharged home on 12/24/2020. Consultants: Cardiology Dr. Scott Pulmonology Dr. Kennedy easy Surgery Dr. Clark Discharge Condition Improved and stable Discharge Activity Advance as tolerated Discharge Diet Advance as tolerated Final diagnoses Hypertension History of appendicitis Status post laparoscopic appendectomy (12/23) I have been assigned to dictate discharge summary for this account. Howard Martinez Dec 28, 2020 14:40
--- NOTE | 2020-12-29 16:14 | History and Physical Report ---
DATE OF ADMISSION: 12/23/2020 HISTORY OF PRESENT ILLNESS: This is a 40-year-old male who came to the emergency room for having abdominal pain, nausea, vomiting, was found to have acute appendicitis. The patient is currently awake and alert. His abdominal pain is improving with the pain medication. PAST MEDICAL HISTORY: None. ALLERGIES: None. MEDICATIONS: None. PHYSICAL EXAMINATION: GENERAL: This is a young male who is currently in bed, comfortable. VITAL SIGNS: Blood pressure is 139/90, pulse 104, respirations 20, his temperature is 98.1. SKIN: Good skin turgor. HEENT: NAD. CHEST: Bilaterally clear. CARDIOVASCULAR: Regular rhythm. ABDOMEN: Soft. Positive bowel sounds. Diffuse tenderness. EXTREMITIES: No edema. GENITOURINARY: Examination deferred. LABORATORY DATA: White count 17,000, hemoglobin is 17, hematocrit 53, platelets are 242. Chemistry panel, potassium 3.3, BUN 12, creatinine 1.1. Urine test is negative, 2+ protein. Imaging, CT of abdomen and pelvis showing dilated fluid-filled appendix with appendiceal changes. ASSESSMENT: 1. Acute appendicitis. 2. Hypokalemia. 3. Recurrent nausea and vomiting. PLAN: We will admit on the medical floor. NPO, IV fluids, Zosyn. Continue Zofran, pain medication, morphine. Consider surgery consult. Parviz Benjamin M.D. DR: SAMMIE JOB#: [id number] CC:
--- NOTE | 2020-12-29 17:14 | History and Physical Report ---
DATE OF ADMISSION: 12/23/2020 HISTORY OF PRESENT ILLNESS: This is a 40-year-old male who came to the hospital for having acute diverticulitis. The patient underwent surgery, did very well. Tolerating diet. He has no pain. Abdominal pain has improved. PHYSICAL EXAMINATION: VITAL SIGNS: Blood pressure is 148/76, pulse 86, temperature 97. HEENT: NAD. CHEST: Bilaterally clear. CARDIOVASCULAR: Regular rhythm. ABDOMEN: Soft. Mild tenderness on a suture. GENITOURINARY: Examination deferred. LABORATORY DATA: White counts are 18,000, hemoglobin 16. Chemistry panel, BUN 15, creatinine 1, glucose 129. ASSESSMENT: 1. Acute cholecystitis. 2. Acute appendicitis, status post appendectomy. PLAN: The patient is going to go home. Recommended to continue antibiotic, pain medication, and increase p.o. fluids. Follow up as an outpatient. Continue antihypertensive medicine at home. Parviz Benjamin M.D. DR: SAMMIE JOB#: [id number] CC:
--- NOTE | 2020-12-29 18:29 | Consultation ---
DATE OF CONSULTATION: 12/23/2020 CARDIOLOGY CONSULTATION CONSULTING PHYSICIAN: Guillermo Scott MD REFERRING PHYSICIAN: Prashanth Benjamin MD. ADDITIONAL REFERRING PHYSICIAN: Dom Clark MD REASON FOR CONSULTATION: Preoperative clearance prior to surgery and management of hypertension. HISTORY OF PRESENT ILLNESS: The patient is a 40-year-old gentleman with no past medical history, on no medication at home, who presented to [facility] complaining of right lower quadrant abdominal pain of 1 day duration. This has started later in evening followed by nausea and nonbloody bilious emesis. The patient noted to have leukocytosis and CT scan was consistent with appendicitis. Dr. Clark evaluated the patient and is trying to take the patient to the OR. Cardiology clearance was requested for further evaluation especially the blood pressure has been elevated, blood pressure 170/107. In the ER, blood pressure was 164/103. REVIEW OF SYSTEMS: Negative other than what was mentioned in the history of present illness. PAST MEDICAL HISTORY: As mentioned above. FAMILY HISTORY: Noncontributory. SOCIAL HISTORY: Denies smoking, drinking alcohol, or using drugs. PHYSICAL EXAMINATION: VITAL SIGNS: Show blood pressure 170/107, pulse is 82, respirations 18, and temperature 98.3. HEAD AND NECK: No JVD. LUNGS: Clear. CARDIOVASCULAR: Regular S1 and S2 with no gallop. ABDOMEN: Right lower quadrant tenderness. EXTREMITIES: No pitting edema. LABORATORY AND DIAGNOSTIC DATA: His labs show white count 17.7, hemoglobin 17.9, hematocrit 53, and platelet count is 242. Sodium 140, potassium 3.3, BUN of 12, creatinine 1.9, and glucose of 135. ALT is 119, alkaline phosphatase 120. ASSESSMENT AND PLAN: 1. Accelerated hypertension, this could be due to stress of acute appendicitis. I will start the patient on metoprolol 25 mg b.i.d. and add p.r.n. clonidine to his medical regimen. The patient is also on p.r.n. IV hydralazine as well. It is of note that the patient's EKG was obtained that showed sinus rhythm with no acute ST-T wave abnormalities. 2. Acute appendicitis. The patient denies any prior myocardial infarction, coronary artery disease, or congestive heart failure. He is able to lay flat without any symptoms. EKG is nonischemic. The patient is low risk and is cleared from cardiac perspective to proceed with appendectomy. 3. Elevated white count likely due to acute appendicitis. Thank you very much, Dr. Clark, for allowing me to participate in the care of this patient. Please do not hesitate to contact me for any questions regarding my evaluation. Sincerely, Guillermo Scott M.D. DR: Camilla JOB#: [id number] CC:
--- NOTE | 2020-12-29 21:29 | Operative Note - Dictated ---
DATE OF OPERATION: 12/23/2020 PREOPERATIVE DIAGNOSIS: Acute appendicitis. POSTOPERATIVE DIAGNOSIS: Acute appendicitis. OPERATION PERFORMED: Laparoscopic appendectomy. ATTENDING SURGEON: Dom Clark M.D. UTILITY SERVICE WORKER: None. ANESTHESIOLOGIST: William Morton M.D. ANESTHESIA: General INSTRUCTIONAL WRITER plus local. ESTIMATED BLOOD LOSS: Minimal. IV FLUIDS: Please see Anesthesia records. COMPLICATIONS: None. DRAINS: None. SPONGE AND NEEDLE COUNTS: Correct x2. WOUND CLASSIFICATION: Class 3. SPECIMENS: Appendix. INDICATIONS FOR THE PROCEDURE: This is a 40-year-old male who presented to [facility] complaining of acutely worsening right lower quadrant abdominal pain, identified to have leukocytosis and CT scan consistent with acute uncomplicated appendicitis. Surgery was indicated and recommended and consent was obtained from the patient. The patient was taken to the operating room after consent was obtained and all preop workup completed. OPERATIVE NOTE: The patient was taken to the operating room and placed on the operating table in supine position with left arm tucked. All bony prominences were well padded. SCDs were placed. Preoperative time-out was taken identifying the patient, procedure, operative staff, and surgical staff. General anesthesia was induced, the patient was intubated. All COVID precautions were taken. The abdomen was clipped, prepped, and draped in standard surgical fashion. An infraumbilical incision was made and carried down through the subcutaneous tissue. The fascia was elevated and incised and entry into the abdomen was obtained using open Mora technique without complication. A 12 mm Mora trocar was inserted and the abdomen was insufflated to 12-15 mmHg. The patient tolerated the insufflation well. Laparoscope was inserted and the abdomen was inspected. No injury from initial trocar placement was identified. Secondary trocar was placed under direct visualization beginning with a 12 mm in the left lower quadrant, followed by 5 mm suprapubic. Laparoscopic grasper was then used. The right lower quadrant was evaluated. The cecum was identified and the tenia was followed to the confluence. A true retrocecal appendix was identified and the white line of Toldt was slowly mobilized inferiorly in the cecum to allow the appendix to be mobilized. Once it was mobilized, a window was made between the appendix and mesoappendix. A laparoscopic linear stapler was used and the appendix was divided at the base without complication. In the similar fashion, the mesoappendix was divided. Laparoscopic clips were used to obtain hemostasis. The appendix was placed in an endoscopic retrieval bag and removed from the abdomen using left lower quadrant port site. The right lower quadrant and pelvis were irrigated and suctioned clean. Hemostasis was identified, stable, and viable, and appropriate laparoscopic staple lines and clips were noted. At this time, we began the conclusion of our procedure. Secondary trocars were removed under direct visualization, followed by umbilical trocar site. Umbilical trocar site fascia and left lower quadrant trocar site fascia were reapproximated using [id number] #0 Vicryl sutures. Skin incisions were reapproximated using 4-0 Monocryl subcuticular interrupted sutures. Steri-Strips and skin glue were applied. The patient tolerated the procedure well and was extubated and taken to postanesthetic care unit in a stable condition. Dom Clark M.D. DR: IRMA JOB#: [id number] CC:
== END 2020-12-24 10:00 | disposition home or self-care (01) | DRG 234 ==
LOC: EMR 06:50 → 3E 08:44 → EDBEDREQ 09:04
PROC: 0DTJ4ZZ Resection of Appendix, Percutaneous Endoscopic Approach (ICD-10-PCS; principal; 2020-12-23 12:00)
DX: K35.80 Unspecified acute appendicitis (principal); Z68.41 Body mass index [BMI] 40.0-44.9, adult; E66.9 Obesity, unspecified; E87.6 Hypokalemia; Z86.16 Personal history of COVID-19; I10 Essential (primary) hypertension; Z68.1 Body mass index [BMI] 19.9 or less, adult
CPT/HCPCS: 36415; 74177; 80048; 80053; 81003; 83690; 85007; 85025; 93005; 94003; 94150; 96361; 96365; 96375; 99285; J2405; J7030